=== PATIENT | female | born 1990 ===

== ENCOUNTER 2020-02-04 14:40 | Emergency (ER) | payer OTHER ==
[2020-02-04] MEDS ORDERED: LIDOCAINE 1% MPF 5 ML VIAL ONE (15:31)
--- NOTE | 2020-02-04 16:11 | RAD REPORT ---
EXAM DESCRIPTION: RAD - Femur Right - 02/04/2020 4:00 pm CLINICAL HISTORY: laceration COMPARISON: No comparisons FINDINGS: No fracture or radiopaque foreign body evident.
--- NOTE | 2020-02-04 16:59 | EDPHYS ---
Physician Documentation [facility] Name: Shannon Curtis Age: 29 yrs Sex: Female : 1990 Arrival Date: 02/04/2020 Time: 14:54 Bed 16 Private MD: ED Physician Ross Robledo HPI: 02/03 15:17 This 29 yrs old Female presents to ER via Wheelchair with complaints of pm1 Puncture Wound To Leg. 15:17 The patient presents with a laceration, 3 cm(s), clean. The complaints affect the pm1 medial aspect of right thigh. 15:18 Context: The problem was sustained at home, resulted from cutting cable ties towards pm1 here with pocket knife and cut her right thigh, the patient can fully bear weight, the patient is able to ambulate, Problem is a result from a previous injury: No. Onset: The symptoms/episode began/occurred just prior to arrival. Modifying factors: The symptoms are alleviated by nothing. the symptoms are aggravated by nothing. Associated signs and symptoms: Pertinent negatives numbness, tingling, weakness. Treatment prior to arrival includes: applying pressure to the affected area. Severity of symptoms: in the emergency department the symptoms have improved. The patient has not experienced similar symptoms in the past. It is unknown whether or not the patient has recently seen a physician, tetanus within 3 years. Historical: - Allergies: 15:01 Sulfa (Sulfonamide Antibiotics); ll1 - PMHx: 15:01 Anxiety; ll1 - PSHx: 15:01 labrium tear repair; ll1 - Immunization history:: Last tetanus immunization: < 10 years ago. - Social history:: Smoking status: Patient denies any tobacco usage or history of. Patient uses alcohol, only on a social basis. Patient/guardian denies using street drugs. ROS: 15:18 Constitutional: Negative for fever, chills, and weight loss. pm1 15:18 Cardiovascular: Negative for chest pain, palpitations, and edema, Respiratory: Negative for shortness of breath, cough, wheezing, and pleuritic chest pain, Abdomen/GI: Negative for abdominal pain, nausea, vomiting, diarrhea, and constipation, Neuro: Negative for headache, weakness, numbness, tingling, and seizure. 15:18 MS/extremity: Positive for laceration, of the medial aspect of right thigh. 15:18 Skin: Positive for laceration(s), of the medial aspect of right thigh. 15:18 All other systems are negative. Exam: 15:18 Constitutional: This is a well developed, well nourished patient who is awake, alert, pm1 and in no acute distress. Head/Face: Normocephalic, atraumatic. Chest/axilla: Normal chest wall appearance and motion. Nontender with no deformity. No lesions are appreciated. 15:18 Cardiovascular: Exam negative for acute changes, Rate: normal, Rhythm: regular, Pulses: no pulse deficits are appreciated. 15:18 Respiratory: Exam negative for acute changes, respiratory distress, shortness of breath, wheezing. 15:18 Musculoskeletal/extremity: Extremities: grossly normal except: noted in the medial aspect of right thigh: laceration, ROM: intact in all extremities, Circulation is intact in all extremities. Vital Signs: 14:59 BP 113 / 81; Pulse 73; Resp 17; Temp 98.1; Pulse Ox 99% ; Pain 4/10; ll1 Laceration: 16:21 Wound Repair of 3cm ( 1.2in ) subcutaneous laceration to medial aspect of right thigh. pm1 Linear shaped.. Distal neuro/vascular/tendon intact. Anesthesia: Local anesthetic administered with 4 mls of 1% lidocaine. Wound prep: Extensive cleansing with hibiclenz by me, Wound irrigation with saline by me, Wound explored extensively, Copious irrigation. Skin closed with 6 4-0 Prolene using simple sutures and sterile technique. Dressed with Neosporin, 4x4's. Patient tolerated well. MDM: 15:13 Patient medically screened. pm1 15:17 Data reviewed: vital signs. Data interpreted: Pulse oximetry: on room air is 99 %. pm1 Interpretation: normal. 16:21 Counseling: I had a detailed discussion with the patient and/or guardian regarding: the pm1 historical points, exam findings, and any diagnostic results supporting the discharge/admit diagnosis, radiology results, the need for outpatient follow up, to return to the emergency department if symptoms worsen or persist or if there are any questions or concerns that arise at home. 02/03 15:14 Order name: Prolene, Sutures; Complete Time: 15:36 pm1 02/03 15:14 Order name: Dressing - Wound; Complete Time: 15:36 pm1 02/03 15:14 Order name: Gloves, Sterile; Complete Time: 15:36 pm1 02/03 15:14 Order name: Setup Suture Tray; Complete Time: 15:36 pm1 Administered Medications: No medications were administered Disposition: 19:46 Co-signature as Attending Physician, Ross Robledo MD. [email or web address] Disposition: 02/04/20 16:22 Discharged to Home. Impression: Laceration without foreign body, right lower leg - medial aspect of thigh. - Condition is Stable. - Discharge Instructions: Laceration Care, Adult. - Prescriptions for Diflucan 150 mg Oral Tablet - take 1 tablet by ORAL route one time for 1 day; 1 tablet. Keflex 500 mg Oral Capsule - take 1 capsule by ORAL route every 12 hours for 10 days; 20 capsule. - Medication Reconciliation Form, Thank You Letter, Antibiotic Education, Prescription Opioid Use form. - Follow up: Emergency Department; When: As needed; Reason: Worsening of condition. Follow up: Private Physician; When: 10 - 14 days; Reason: Recheck today's complaints, Continuance of care, Staple/Suture removal, Re-evaluation by your physician. - Problem is new. - Symptoms have improved. Signatures: Vega Laws NP BEATER OUT pm1 Glenna Peres RN RN Katy Olsen RN RN [facility] Ross Robledo MD MD 7 Corrections: (The following items were deleted from the chart) 16:53 16:22 02/04/2020 16:22 Discharged to Home. Impression: Laceration without foreign body, ah right lower leg - medial aspect of thigh. Condition is Stable. Forms are Medication Reconciliation Form, Thank You Letter, Antibiotic Education, Prescription Opioid Use. Follow up: Emergency Department; When: As needed; Reason: Worsening of condition. Follow up: Private Physician; When: 10 - 14 days; Reason: Recheck today's complaints, Continuance of care, Staple/Suture removal, Re-evaluation by your physician. Problem is new. Symptoms have improved. pm1
--- NOTE | 2020-02-04 17:00 | ER ---
Nurse's Notes 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 <3 cm laceration to right thigh. Bleeding controlled. Coronavirus screen: Proceed with normal triage. Patient denies a cough. Patient denies shortness of breath or difficulty breathing. Patient denies measured and/or subjective temperature greater than 100.4F prior to today's visit. Patient denies travel on a cruise ship or to a country the [facility] currently lists as an affected area. Patient reports contact with known and/or suspected case of COVID-19. Ebola Screen: Patient denies travel to an Ebola-affected area in the 21 days before illness onset. Initial Sepsis Screen: Does the patient meet any 2 criteria? No. Patient's initial sepsis screen is negative. Does the patient have a suspected source of infection? No. Patient's initial sepsis screen is negative. Risk Assessment: Do you want to hurt yourself or someone else? Patient reports no desire to harm self or others. Onset of symptoms was February 04, 2020. 14:59 Method Of Arrival: Wheelchair ll1 14:59 Acuity: BO 4 ll1 Triage Assessment: 15:15 General: Appears in no apparent distress. uncomfortable, Behavior is calm, cooperative, vc appropriate for age. Pain: Complains of pain in medial aspect of right thigh. Historical: - Allergies: 15:01 Sulfa (Sulfonamide Antibiotics); ll1 - PMHx: 15:01 Anxiety; ll1 - PSHx: 15:01 labrium tear repair; ll1 - Immunization history:: Last tetanus immunization: < 10 years ago. - Social history:: Smoking status: Patient denies any tobacco usage or history of. Patient uses alcohol, only on a social basis. Patient/guardian denies using street drugs. Screenin:15 Abuse screen: Denies threats or abuse. Nutritional screening: No deficits noted. vc Tuberculosis screening: No symptoms or risk factors identified. Fall Risk None identified. Assessment: 15:30 General: Appears in no apparent distress. uncomfortable, Behavior is calm, cooperative, vc appropriate for age. Pain: Complains of pain in medial aspect of right thigh Pain currently is 10 out of 10 on a pain scale. Quality of pain is described as stabbing. Neuro: Level of Consciousness is awake, alert, obeys commands, Oriented to person, place, time, situation, Appropriate for age. Cardiovascular: Patient's skin is warm and dry. Respiratory: Airway is patent Respiratory effort is even, Respiratory pattern is regular. GI: No signs and/or symptoms were reported involving the gastrointestinal system. : No signs and/or symptoms were reported regarding the genitourinary system. Derm: Wound noted medial aspect of right thigh. 16:30 Reassessment: Patient appears in no apparent distress at this time. Patient and/or vc family updated on plan of care and expected duration. Pain level reassessed. Patient is alert, oriented x 3, equal unlabored respirations, skin warm/dry/pink. Patient states symptoms have improved. Vital Signs: 14:59 BP 113 / 81; Pulse 73; Resp 17; Temp 98.1; Pulse Ox 99% ; Pain 4/10; ll1 ED Course: 14:54 Patient arrived in ED. bp1 15:01 Triage completed. ll1 15:02 Arm band placed on Patient notified of wait time. ll1 15:04 Melissa Corrigan RN is Primary Nurse. vc 15:07 Vega Laws NP is PHCP. pm1 15:07 Ross Robledo MD is Attending Physician. pm1 15:15 Patient has correct armband on for positive identification. Placed in gown. Bed in low vc position. Call light in reach. Pulse ox on. NIBP on. 16:00 Assist provider with laceration repair on medial aspect of right thigh that was between vc 2.6 to 7.5 cm using sutures. Set up tray. Performed by Vega Laws [employer]ESSION[employer] Dressed with 4X4s, Pavan, hakeem wrap Patient tolerated well. 16:50 Patient did not have IV access during this emergency room visit. vc Administered Medications: No medications were administered Outcome: 16:22 Discharge ordered by . pm1 16:50 Discharged to home via wheelchair. vc 16:50 Condition: good 16:50 Discharge instructions given to patient, Instructed on discharge instructions, follow up and referral plans. medication usage, wound care, Demonstrated understanding of instructions, follow-up care, medications, wound care, Prescriptions given X 3. 16:53 Patient left the ED. Signatures: Vega Laws NP PROFESSIONAL VOLLEYBALL PLAYER pm1 Melissa Corrigan RN RN vc Harris, Amy, RN RN ah Lewis, Lynsay, RN RN 1 Ronel Live [facility]
[2020-02-04 17:42] VITALS: BP 113/81; TEMP 98.1; O2SAT 99
== END 2020-02-04 16:53 | disposition home or self-care (01) ==
LOC: ER 14:40
PROC: 0JQL0ZZ Repair Right Upper Leg Subcutaneous Tissue and Fascia, Open Approach (ICD-10-PCS; principal; 2020-02-04)
DX: S71.111A Laceration without foreign body, right thigh, initial encounter (principal); W26.0XXA Contact with knife, initial encounter; Y93.89 Activity, other specified; Y92.009 Unspecified place in unspecified non-institutional (private) residence as the place of occurrence of the external cause; Z88.2 Allergy status to sulfonamides
CPT/HCPCS: 99283